=== PATIENT | male | born 1995 | race Caucasian/White ===

== ENCOUNTER 2020-07-09 07:47 | Outpatient (CLI) | payer OTHER, SELFPAY ==
--- NOTE | ~2020-07-09 | US_ITS ---
EXAMINATION: US abdomen limited EXAM DATE: 07/09/2020 08:23 INDICATION: R74.8 - Abnormal levels of other serum enzymes. TECHNIQUE: Multiple grayscale and Doppler images of the abdomen right upper quadrant were obtained (b y a technologist who performed the scan) and subsequently reviewed. There is no prior study for oksana zabala. FINDINGS: The pancreatic head and body are normal in appearance. The pancreatic tail is not visualized. There is echogenic liver parenchyma, hepatic steatosis. There are no focal liver lesions identified. Th ere is no evidence of intrahepatic biliary duct dilation. Portal venous flow was seen in the hepatop edal, normal direction and has normal Doppler waveform. No right-sided hydronephrosis. Common bile duct measures 4 mm, which is normal. The gallbladder wall is normal in thickness, with ex pected amount of distention. No sonographic evidence of pericholecystic fluid. There is no cholelit hiases. Technologist performing exam reports patient did not demonstrate sonographic Bennett's sign. Please note that this sign is less reliable in patients who have received pain medication. IMPRESSION: 1. Unremarkable abdominal ultrasound exam. Reviewed, dictated and finalized at location B. ME [employer] INVESTIGATOR
== END 2020-07-09 07:48 | disposition home or self-care (01) ==
LOC: ANHIMG 07:49
PROVIDERS: PCP Internal Medicine; Visit Provider Clinical Nurse Specialist
DX: R74.8 Abnormal levels of other serum enzymes (principal)
CPT/HCPCS: 76705

== ENCOUNTER 2021-01-14 22:44 | Emergency (ER) | payer OTHER, SELFPAY ==
--- NOTE | ~2021-01-14 | XR_ITS ---
XR hand RT min 3V DATE: 01/14/2021 23:18 INDICATION: Glass laceration of the base of the fifth digit TECHNIQUE: 3 views COMPARISON: None FINDINGS: No radiopaque soft tissue foreign body or subcutaneous emphysema is evident. No fracture or dislocation, periosteal reaction or bone destruction. IMPRESSION: Negative Reviewed, dictated and finalized at location A. IMPRESSION: Negative
[2021-01-14 22:47] VITALS: BP 154/99; PULSE 94; RESP 18; TEMP 36.3; O2SAT 100
--- NOTE | 2021-01-14 23:06 | ED.WOUNDLAC ---
HPI - Wound/Laceration General Chief Complaint: Wound/Laceration Stated Complaint: Hand Laceration Time Seen by Provider: 01/14/21 22:54 Source: patient and RN notes reviewed Mode of arrival: ambulatory Limitations: no limitations History of Present Illness HPI narrative: This is a 25 year old male right hand dominant who presents for evaluation right hand laceration. He states prior to his arrival he was holding a glass that broke, and he suffered a right hand laceration. He is unsure if it needed stitches so he came to ER for evaluation. He has only mild pain. He denies numbness, tingling or weakness. He is unsure of his last tetanus shot. Related Data Home Medications Medication Instructions Recorded Confirmed cetirizine 10 mg tablet 10 mg PO DAILY 05/22/20 07/01/20 wrhkcszq-wjubpplg-obfus acid 400 tablet PO 05/22/20 07/01/20 mcg-vit K 20 mcg-lycop 300 mcg tablet Allergies Allergy/AdvReac Type Severity Reaction Status Date / Time No Known Allergies Allergy Verified 01/14/21 22:51 Review of Systems Review of Systems: All systems reviewed & are unremarkable except as noted in HPI and below PMFSH Past Medical History Medical History Tethered spinal cord 1990 Family History Family History (Updated 05/22/20 @ 07:51 by Tamiko Stevenson) Father Coronary heart disease Acute myocardial infarction Hypertension Grandparent Diabetes mellitus Kidney failure Macular degeneration Hypertension Parkinson disease Sibling Asthma Social History Social History (Updated 05/22/20 @ 07:52 by Tamiko Stevenson) Smoking status: Never smoker Alcohol intake: current Gender identity (if verbalized by the patient): Male Exam Const: General: no acute distress and alert Orientation/consciousness: patient oriented x3 Eyes: EOM: EOMs intact bilaterally Resp: Effort & Inspection: normal respiratory effort Skin: Other: 2 cm hand laceration Neuro: General: patient oriented x3 and moves all extremities Extrem: Other: right hand palmar aspect laceration located a thenar eminence. 2 cm linear laceration; otherwise FROM Psych: Mental Status: mental status grossly normal Affect: normal affect Course Vital Signs Vital signs: Vital Signs Temperature 97.3 F L 01/14/21 22:47 Pulse Rate 94 01/14/21 22:47 Respiratory Rate 18 06/02/21 22:47 Blood Pressure 154/99 H 01/14/21 22:47 Pulse Oximetry 100 01/14/21 22:47 Temperature 97.3 F L 01/14/21 22:47 Pulse Rate 94 01/15/21 01:05 Respiratory Rate 16 01/15/21 01:05 Blood Pressure 132/88 01/15/21 01:05 Pulse Oximetry 98 01/15/21 01:05 Procedures Laceration Laceration 1: Date: 01/15/21 Time: 00:44 Site: hand (right palm) Side (If applicable): right Size (cm): 2 Description: linear Depth: simple, single layer Local Anesthetic: lidocaine 1% Amount of anesthesia used (mL): 2 Pre-repair: irrigated and deep structures intact ====== Skin Level ====== Skin layer closed with: prolene Size (cm): 4-0 Number of sutures: 4 Technique: simple, interrupted and horizontal mattress ====== Subcutaneous Layer ====== ====== Muscle Layer ====== ====== Tendon Layer ====== MDM - Wound/Laceration Imaging Data Radiologist's impression: ITS Impressions Hand X-Ray 01/14/21 23:19 IMPRESSION: Negative Discharge Plan Discharge Clinical Impression: Laceration of hand, right Qualifiers: Encounter type: initial encounter Foreign body presence: without foreign body Qualified Code(s): S61.411A - Laceration without foreign body of right hand, initial encounter Patient Disposition: Home, Self-Care Condition: Stable Instructions: Antibiotic Form, Care For Your Stitches (ED), Laceration (ED) Additional Instructions: Today you wer
[2021-01-14] MEDS: TETANUS,DIPHTHERIA,AC PERTUSSIS ADULT (0.5 ML) BOOSTRIX IM (23:39)
[2021-01-14] MEDS: IBUPROFEN 400 MG TABLET 800 MG PO (23:39)
[2021-01-15 01:05] VITALS: BP 132/88; PULSE 94; RESP 16; O2SAT 98
--- NOTE | 2021-01-21 05:38 | PC.NURSE ---
LATE NOTE: Both wound assessments done by this RN accidentally charted on the pts LEFT hand, instead of the pts RIGHT hand.
== END 2021-01-15 01:05 | disposition home or self-care (01) ==
PROVIDERS: Emergency Provider General Practice; PCP Internal Medicine
DX: S61.411A Laceration without foreign body of right hand, initial encounter (principal); Z23 Encounter for immunization; W25.XXXA Contact with sharp glass, initial encounter
CPT/HCPCS: 12001; 73130; 90471; 90715; 99283; A9270

== ENCOUNTER 2022-05-28 10:19 | Outpatient (CLI) | payer OTHER, SELFPAY | END 2022-05-28 10:20 | disposition home or self-care (01) | PROVIDERS: PCP Internal Medicine; Visit Provider Clinical Nurse Specialist | DX: E78.5 Hyperlipidemia, unspecified (principal); R74.8 Abnormal levels of other serum enzymes | CPT/HCPCS: 99199; 36415 ==

== ENCOUNTER 2023-04-21 08:39 | Outpatient (CLI) | payer BC, SELFPAY ==
[2023-04-21 19:04] LABS: Alanine Aminotransferase 37 U/L (6-50); Albumin Level 4.7 g/dL (3.5-5.1); Alkaline Phosphatase 79 U/L (38-126); Anion Gap 6 mmol/L (8-16); Aspartate Amino Transferase 44 U/L (17-59); Bilirubin,Total 0.8 mg/dL (0.2-1.3); Blood Urea Nitrogen 20 mg/dL (9-20); Calcium 9.4 mg/dL (8.4-10.2); Carbon Dioxide 32 mmol/L (22-30); Chloride 102 mmol/L (98-107); Cholesterol 223 mg/dL (0-200); Estimated Glomerular Filt Rate > 60; Glucose 92 mg/dL (65-110); HDL Direct 38 mg/dL; Potassium 4.5 mmol/L (3.4-5.0); Sodium 140 mmol/L (137-145); Triglycerides 193 mg/dL (<150)
[2023-04-21 19:15] LABS: LDL Cholesterol Direct 130 mg/dL
[2023-04-21 19:27] LABS: Basophils Percent Auto 0.3 % (0.2-1.2); Eosinophils Absolute Auto 0.1 K/mm3 (0-0.3); Eosinophils Percent Auto 0.8 % (0-4.4); Hematocrit 48.6 % (42.0-52.0); Hemoglobin 16.4 g/dL (14.0-18.0); Immature Granulocyte Absolute 0.01 K/mm3 (0.00-0.031); Immature Granulocyte Percent A 0.2 % (0-0.5); Lymphocytes Absolute Auto 2.11 K/mm3 (0.9-3.2); Lymphocytes Percent Auto 32.5 % (18.3-44.2); Mean Corpuscular HGB Conc 33.7 g/dl (32-36); Mean Corpuscular Hemoglobin 31.1 pg (26-34); Mean Platelet Volume 11.6 fl (7.4-10.4); Monocytes Absolute Auto 0.7 K/mm3 (0.1-0.6); Monocytes Percent Auto 10.2 % (2.6-8.5); Neutrophils Absolute Auto 3.6 K/mm3 (1.3-6.7); Platelet Count Result 184 k/mm3 (150-375); Red Blood Count 5.28 M/mm3 (4.6-6.20); Red Cell Distribution Width 11.3 % (11.5-14.5); White Blood Count 6.5 K/mm3 (4.5-10.0)
== END 2023-04-21 08:40 | disposition home or self-care (01) ==
LOC: ANHGOSHLAB 08:41
PROVIDERS: PCP Internal Medicine; Visit Provider Clinical Nurse Specialist
DX: Z13.228 Encounter for screening for other metabolic disorders (principal); R74.8 Abnormal levels of other serum enzymes; E78.5 Hyperlipidemia, unspecified
CPT/HCPCS: 36415; 80053; 80061; 85025

== ENCOUNTER 2023-06-14 08:00 | Outpatient (RCR) | payer SELFPAY ==
--- NOTE | 2023-05-03 13:49 | PTOPEVAL1 ---
Assessment and note entered by Nighat Fox, PT, DPT Evaluation Information Assessment Status Evaluation Diagnosis R hip pain, R shoulder pain Onset 4 months Subjective Information Pt states he is having a little bit of hip and shoulder pain. He reports about a 4 month history of hip pain, he states he things he squatted too heavy and for a while wrote it off to soreness. He states recently his hip hasn't hurt but it just feels really tight still. He states he found a stretch on line that has been helping he just wants more info as to if he shoulder rest or keep exercising. He states squatting on his toes feels better than squatting on his heels. Reported Pain Level Pain Score 0: Self Report Assessment PT Clinical Summary Ted presents to therapy today for his initial evaluation with a diagnosis of R hip pain, he also complains of R shoulder pain. Today he demonstrates active and passive hip ROM that is WNL as well as good strength. He does have some hip flexor tightness R>L. Today he was instructed in a stretching and dynamic warmup routine, proper squat form was also reviewed. Pt choose to complete his HEP, slowly return to weight lifting, and to follow up in one month. Plan of Care Interventions Gait Training,Manual Therapy,Neuro Re-education, Patient/Caregiver Educati,Therapeutic Activities, Therapeutic Exercise PT Services Indicated Yes Treatment Frequency and follow up in 1 month Duration These treatments will address the objective and functional deficits as defined above. The patient will be advanced safely and appropriately in order for the patient to progress towards his/her prior level of function. Additional exercises will be introduced and as well as a comprehensive home exercise program upon discharge, if needed, ?to ensure carryover of functional gains achieved in the clinic. This treatment plan has been reviewed and agreement upon by the patient.
--- NOTE | 2023-06-14 09:01 | PTOPPROG ---
Assessment and note entered by Nighat Fox, PT, DPT Evaluation Information Assessment Status Progress Diagnosis R hip pain, R shoulder pain Onset 4 months Subjective Information Pt reports good compliance with his HEP in the last 5-6 weeks. Pt states he has days where his hip is great and he has no pain, and other days where his hip just feels achy, but he thinks this is from doing his exercises religiously. He states that useing the leg press will make his leg sore the neck day, he has not tried squatting yet. Pt states his shoulder is doing well. Assessment PT Clinical Summary Ted presents to therapy today for his progress report after 1 month participation in his HEP to treat his R hip pain. Today he continues to demonstrates tightness of his R hip flexor compared to his L hip. He has not returned to lifting yet, he was encouraged to do so. Pt choose to complete his HEP and to follow up in one month . Plan of Care Interventions Gait Training,Manual Therapy,Neuro Re-education, Patient/Caregiver Educati,Therapeutic Activities, Therapeutic Exercise PT Services Indicated Yes Treatment Frequency and follow up in 1 month Duration These treatments will address the objective and functional deficits as defined above. The patient will be advanced safely and appropriately in order for the patient to progress towards his/her prior level of function. Additional exercises will be introduced and as well as a comprehensive home exercise program upon discharge, if needed, ?to ensure carryover of functional gains achieved in the clinic. This treatment plan has been reviewed and agreement upon by the patient.
--- NOTE | 2023-06-15 09:43 | PTOPDC ---
Assessment and note entered by Nighat Fox, PT, DPT Evaluation Information Assessment Status Discharge - Pt Not Present Diagnosis R hip pain, R shoulder pain Onset 4 months Subjective Information Pt insurance was denied and did not authorize treatments. Assessment PT Clinical Summary Pt completed 2 therapy visits form 05/03/23 to . He will be discharged at this time d/t insurance coverage.
== END 2023-06-16 10:31 | disposition home or self-care (01) ==
LOC: ANHGOSHPT 08:00
PROVIDERS: PCP Internal Medicine; Visit Provider Clinical Nurse Specialist
DX: M25.551 Pain in right hip (principal)
CPT/HCPCS: 97110; 97161; 97530